=== PATIENT | male | born 1960 | race Caucasian/White ===

== ENCOUNTER → 2016-04-24 08:19 | Day surgery (SDC) | payer OTHER ==
[~2016-04-24 08:19] MED LIST: Atracurium* 10 MG/ML 10 ML VIAL ONE; Buffered Lidocaine 1% SYR 3ML* 3 ML/SYR SYRINGE INTRADERM ONE; Bupivacaine 0.25% EPI 200,000* 30 ML SDV ONE; Desflurane* 240 ML INH ONE; Dexamethasone IV* 4 MG/ML 1 ML (4 MG) IV SLOW PU ONE; Dexamethasone IV* 4 MG/ML 1 ML (4 MG) ONE; DiMENhydriNATE IV* 50 MG/ML VIAL IV PUSH PRN; EPHEDrine (Pressors)* 50 MG/ML VIAL ONE; EPINEPHrine AMP 1 MG/ML ONE; Famotidine IV* 10 MG/ML 2 ML (20 mg) IV ONE; Famotidine IV* 10 MG/ML 2 ML (20 mg) ONE; HYDROmorphone INJ* 1 MG/ML CARPUJECT SYRINGE IV PRN; Ketorolac INJ* 30 MG/ML 1 ML VIAL ONE; Levalbuterol 0.63MG/3ML NEB INH ONE; Levalbuterol 1.25MG/0.5ML NEB ONE; Midazolam* 1 MG/ML 5 ML VIAL (5 MG) ONE; Ondansetron INJ* 2 MG/ML VIAL IV PRN; Ondansetron INJ* 2 MG/ML VIAL ONE; Propofol* 10 MG/ML 20 ML BTL IV PUSH ONE; ROPIVACAINE 5 MG/ML 30 ML BTL (0.5%) ONE; ceFAZolin 2 GM PREMIX (*) 2 GM/50 ML BAG IVPB ONE; fentaNYL* 50 MCG/ML 2 ML VIAL (100 MCG VIAL) IV PRN; fentaNYL* 50 MCG/ML 2 ML VIAL (100 MCG VIAL) ONE; oxyCODONE/Acetamin 5/325 MG* TAB PO PRN
[2016-04-24 13:32] VITALS: BP 153/94
--- NOTE | 2016-04-25 04:32 | OP ---
DATE OF OPERATION: 04/24/16 - [facility] DATE OF : 58 SURGEON: Harlan Cho MD PHOTOENGRAVING PHOTOGRAPHER: Susan Salamanca RPA ANESTHESIOLOGIST: Bryce Ribeiro MD ANESTHESIA: Regional and general. PRE-OP DIAGNOSES: 1. Impingement syndrome, left shoulder. 2. Osteoarthritis, left acromioclavicular joint. POST-OP DIAGNOSES: 1. Impingement syndrome, left shoulder. 2. Osteoarthritis, left acromioclavicular joint. OPERATIVE PROCEDURE: 1. Left shoulder arthroscopy. 2. Subacromial decompression. 3. Konrad procedure. 4. Debridement, left shoulder. INDICATIONS: Mr. Lopez is a 55-year-old male who has been having more troubles with left shoulder pain. He had previously undergone a right shoulder Konrad procedure, which had worked really well to decrease the pain from his AC joint. On the left side, he had some very prominent spurs at the AC joint as well as pain with the cross-arm test. He had undergone an MRI, which showed very specific high signal in the area of the AC joint and no tear of his rotator cuff. I discussed with him that shoulder arthroscopy, decompression, and Konrad procedure should work well to decrease his pain and improve his function. Risks of surgery such as infection, scar formation, stiffness, continued pain were some of the risks discussed. He had wished to proceed. ESTIMATED BLOOD LOSS: Negligible. COMPLICATIONS: None. DESCRIPTION OF PROCEDURE: The patient was brought to the OR and a scalene block was placed. General endo-tracheal anesthesia was then established. He was then sat up in the beach-chair position. Care was taken to make sure that his right arm was nicely padded on an arm board and that the cubital tunnel was not compressed. Left shoulder area was prepped and then draped. Portal sites were preinjected using 0.25% Marcaine with epinephrine. standard posterior portal was made first using an 11 blade. Blunt trocar at the sheath was easily introduced into the shoulder and a camera was introduced into the sheath. Shoulder was allowed to insufflate and pulling back, glenohumeral joint was nicely visualized. It could be seen he had quite a bit of fraying along the subscapularis tendon as well as by the biceps hiatus. Under direct vision, using an outside-in technique, the anterior portal was established and probe was introduced and used to confirm that his labrum was firmly attached. Rotator cuff was also attached and pictures of the attachment were taken. Shaver was used to debris the subscap where he had all the fraying as well as some of the fraying along the labrum and biceps hiatus. Pictures were taken afterwards. No loose bodies were seen in the pouch and the shoulder joint was existed. Subacromial space was entered. Thickened inflamed bursa was present. Shaver was used to take down the bursa and open up the AC joint. Once nice exposure, the underside of the acromion from the AC joint to the lateral border of the acromion right at the deltoid insertion was exposed. Bur was then used to perform a decompression. Bur was then used to take down the most medial portion of the distal clavicle and once I finally had cleared out enough of the clavicle such that the 5-mm bur could rattle back and forth a little bit, I thought we had a nice adequate Konrad. Final picture was taken. All instrumentation was removed and the portal sites were closed using 4-0 nylon sutures. Sterile dressing and a Cryo/Cuff were all applied in the OR. The patient was then extubated in the OR and was stable on transfer to the recovery room. DISPOSITION/DISCHARGE SUMMARY: Mr. Lopez is a 55-year-old male who just underwent a left shoulder arthroscopy and a Konrad procedure. He tolerated the procedure well with no complications. He is currently rolling towards the recovery room. Once he wakes a bit more from his general anesthesia, can tolerate p.o., has his pain well controlled, can void, he will be discharged home. Prescription for Shellman will be e-scribed in. He has instructions to keep his dressing, clean, dry, and intact for the next three days, but after that may take his dressing down, cover his sutures with Band-Aids, may shower, wash, and get it wet, but should not soak it. I would like to see him in the office in 10 days, remove his sutures and make sure he is doing well. If there are any problems or anything odd should occur, the instruction is to give the office a call. [id number]/[facility] #: [id number] MTDNatalie
== END | disposition home or self-care (01) ==
LOC: OR 08:19
PROVIDERS: ATTEND Orthopaedic Surgery
DX: M75.42 Impingement syndrome of left shoulder (principal); M19.012 Primary osteoarthritis, left shoulder; I10 Essential (primary) hypertension; J44.9 Chronic obstructive pulmonary disease, unspecified; G47.33 Obstructive sleep apnea (adult) (pediatric)
CPT/HCPCS: A9270-GY; J0171; J0690; J1100; J1885; J2250; J2405; J2704; J2795; J3010

== ENCOUNTER 2017-12-31 08:32 | Emergency (ER) | payer OTHER ==
--- NOTE | 2017-12-31 08:43 | UC ---
Skin Complaint HPI - HPI Summary HPI Summary: 57 yo male presents with multiple tick bites. [place] and this summer has been bitten by at least 20 ticks that he knows of. Most of them he is able to remove within the day, but last night noticed two ticks on his right buttock that he was able to scratch off - unsure how long they were attached, but says they appeared engorged. Also has a tick to his left axilla that he thinks has been there about 4 days and is engorged. He denies fever, chills, joint pain, headache, bull's eye rash, fatigue. - History of Current Complaint Time Seen by Provider: 12/31/17 08:42 Stated Complaint: TICK BITES Hx Obtained From: Patient Current Severity: None - Allergy/Home Medications Allergies/Adverse Reactions: Allergies Allergy/AdvReac Type Severity Reaction Status Date / Time No Known Allergies Allergy Verified 12/31/17 08:50 Review of Systems Constitutional: Negative Skin: Other - Tick bites Respiratory: Negative Cardiovascular: Negative Gastrointestinal: Negative Neurovascular: Negative Musculoskeletal: Negative Neurological: Negative Psychological: Negative All Other Systems Reviewed And Are Negative: Yes PMH/Surg Hx/FS Hx/Imm Hx - Additional Past Medical History Additional PMH: BPH Endocrine History: Dyslipidemia GI/ History: Gastroesophageal Reflux Psychological History: Anxiety, Depression - Surgical History Surgical History: Yes Surgery Procedure, Year, and Place: Right shoulder 1992. Right knee surgeryx2 1973,1983 for bone growths. Right tib/fib - SET & CASTED - NO SURGERY 2009. Lt SHOULDER -03/2016 - Family History Known Family History: Positive: Cardiac Disease - mother, Diabetes, Other - COPD - Social History Lives: With Family Alcohol Use: Daily Alcohol Amount: 2-3 drinks per day Substance Use Type: Marijuana Substance Use Comment - Amount & Last Used: daily marijuana use for anxiety and neck pain Smoking Status (MU): Current Every Day Smoker Type: Cigarettes Amount Used/How Often: 5 cigarettes per day Have You Smoked in the Last Year: Yes When Did the Patient Quit Smoking/Using Tobacco: on patch trying to quit Household Exposure Type: Cigarettes Physical Exam - Summary Physical Exam Summary: GENERAL: NAD. WDWN. No pain distress. SKIN: LEFT AXILLA: Moderately engorged tick attached with mild surrounding erythema. NTTP. No streaking or drainage. Left buttocks: medially there are two 5mm diameter areas of superficial skin loss with mild surrounding erythema consistent with recent tick bite. NTTP. No streaking or drainage. NECK: Supple. Nontender. No lymphadenopathy. CHEST: No accessory muscle use. Breathing comfortably and in no distress. CV: Pulses intact. Cap refill <2seconds NEURO: Alert. PSYCH: Age appropriate behavior. Triage Information Reviewed: Yes Vital Signs: Vital Signs: Temp Pulse Resp BP Pulse Ox 99.3 F 77 18 157/76 100 12/31/17 08:42 12/31/17 08:42 12/31/17 08:42 12/31/17 08:42 12/31/17 08:42 Vital Signs Reviewed: Yes Course/Dx - Course Course Of Treatment: Left axilla tick removed simply with tick twisters. Discussed risk of lyme disease with pt including signs and symptoms. Given his extensive history of tick bites over the last few months and multiple engorged tick bites recently - will treat him for presumptive Lyme Disease with Doxycycline for 14 days. Pt agreeable with plan. - Diagnoses Provider Diagnoses: Tick bites Discharge - Sign-Out/Discharge Documenting (check all that apply): Patient Departure All imaging exams completed and their final reports reviewed: No Studies - Discharge Plan Condition: Stable Disposition: HOME Prescriptions: RX: DOXYcycline CAP(*) [DOXYcycline 100MG CAP(*)] 100 mg PO BID #28 cap Patient Education Materials: Lyme Disease (ED), Tick Bite (ED) Referrals: Vicki Najera MD [Primary Care Provider] - Additional Instructions: If you develop a fever, shortness of breath, chest pain, new or worsening symptoms - please call your PCP or go to the ED. Your blood pressure was elevated at todays visit. Please see your primary provider within 4 weeks for recheck and re-evaluation. - Billing Disposition and Condition Condition: STABLE Disposition: Home
[2017-12-31 08:50] VITALS: BP 157/76
== END 2017-12-31 09:05 | disposition home or self-care (01) ==
LOC: UCEAST 08:32
DX: S40.862A Insect bite (nonvenomous) of left upper arm, initial encounter (principal); W57.XXXA Bitten or stung by nonvenomous insect and other nonvenomous arthropods, initial encounter; Y92.9 Unspecified place or not applicable; F17.210 Nicotine dependence, cigarettes, uncomplicated
CPT/HCPCS: 99212; G0463